=== PATIENT | male | born 1990 | race Caucasian/White ===

== ENCOUNTER 2016-10-14 16:14 | Emergency (ER) | payer OTHER ==
[2016-10-14 16:24] VITALS: RESP 16; TEMP 98.1
[2016-10-14] MEDS ORDERED: TDAP ADULT 0.5 ML INJ (BOOSTRIX) IM ONE (16:25)
--- NOTE | 2016-10-14 16:37 | EDPHY ---
H & P Stated Complaint: Laceration and crush injury to L 2nd and 3rd finger. Time Seen by Provider: 10/14/16 16:16 HPI/ROS: Chief Complaint: Finger injury HPI: 26-year-old male got his finger crushed by a heavy piece of steel that he was working on at work. His fingers were underneath it when it fell landed on them. He sustained lacerations over his index and middle finger of his left hand. He also has a subungual hematoma of his middle finger. Does not recall his last tetanus. No prior injuries. This happened just prior to arrival. He was wearing gloves when this occurred. ROS: 10 point Review of Systems is negative except as noted in the HPI. PMH: None Medications: None Allergies: Amoxicillin Social History: [No] smoking, [no] alcohol, [ no recreational drug use] Family History: [non-contributory] Physical Exam: General: Awake, alert, no acute distress Left hand: He has got lacerations on the palmar aspect of his left hand. There is a laceration over the middle phalanx of his pointer finger. There is a laceration over the distal phalanx of his wound finger. He has full flexion extension strength. There is also subungual hematoma of his 3rd finger. Sensations intact distally. Skin: No rash - Personal History Current Tetanus/Diphtheria Vaccine: Unsure Current Tetanus Diphtheria and Acellular Pertussis (TDAP): Unsure - Medical/Surgical History Hx Asthma: Yes Hx Chronic Respiratory Disease: No Hx Diabetes: No Hx Cardiac Disease: No Hx Renal Disease: No Hx Cirrhosis: No Hx Alcoholism: No Hx HIV/AIDS: No Hx Splenectomy or Spleen Trauma: No Other PMH: Tonsillectomy, asthma - Social History Smoking Status: Never smoked Constitutional: Initial Vital Signs Temperature (C) 36.7 C 10/14/16 16:16 Heart Rate 65 10/14/16 16:16 Respiratory Rate 16 10/14/16 16:16 Blood Pressure 150/75 H 10/14/16 16:16 O2 Sat (%) 93 10/14/16 16:16 O2 Delivery Mode Room Air Allergies/Adverse Reactions: amoxicillin Allergy (Unknown, Verified 10/14/16 16:24) Hives Home Medications: Medication Instructions Recorded NK [No Known Home Meds] 10/14/16 Medical Decision Making - Diagnostics Imaging Results: Imaging Impressions Finger X-Ray 10/14/16 16:26 Impression: No fracture. Procedures: Procedure: Digital nerve block, indication is digit anesthesia for procedure. Patient was prepped with chlorhexidine Skin prep. 0.5% bupivacaine was infiltrated in the medial in lateral aspects for with a dorsal approach at the base of the proximal phalanx with blockage of both dorsal and volar nerves. Total of 1 mL was infiltrated. There were no complications. Procedure was performed by myself. Procedure: Laceration 1 repair. Verbal consent was obtained from the patient. The 1.5 cm laceration on the left index finger was anesthetized in the usual fashion. The wound was irrigated, draped and explored to its base with a gloved finger. There were no deep structures involved. No tendon injury was identified. The wound was repaired with 4, 5-0 Ethilon simple interrupted sutures. The wound repair was uncomplicated. The procedure was performed by myself. Procedure: Laceration 2 repair. Verbal consent was obtained from the patient. The 2 cm laceration on the left middle finger was anesthetized in the usual fashion. The wound was irrigated, draped and explored to its base with a gloved finger. There were no deep structures involved. No tendon injury was identified. The wound was repaired with 5, 5-0 Ethilon simple interrupted sutures. The wound repair was uncomplicated. The procedure was performed by myself. Procedure: Nail trephination. Indication: Subungual hematoma. Anesthesia: None required Verbal consent was obtained from the patient to drain a subungual hematoma. The patient was prepped in the usual fashion. The subungual hematoma was drained with electrocautery. The subungual hematoma was drained successfully and there were no complications. The procedure was performed by myself. - Data Points Medications Given: Discontinued Medications Diphtheria/Tetanus/Acell Pertussis (Boostrix) 0.5 ml IM .ONCE ONE Stop: 10/14/16 16:26 Last Admin: 10/14/16 16:40 Dose: 0.5 ml Departure - Departure Disposition: Home, Routine, Self-Care Clinical Impression: Laceration, Crush injury, Subungual hematoma Condition: Good Instructions: Diphtheria/Acellular Pertussis/Tetanus Booster Vaccine (By injection), Care For Your Stitches (ED), Subungual Hematoma (ED), Laceration (ED ), Crush Injury (ED) Additional Instructions: Stitches need to be removed in 14 days. Follow up with workman's Comp for suture removal. Watch for signs of infection including increasing redness, streaking up your hand, pus from the wounds, increasing pain, warm to touch, or any other concerns. He may take ibuprofen alternating with acetaminophen every 4 hours as needed for pain. Referrals: Work Comp Referral [facility] [Outside] - As per Instructions Stand Alone Forms: Work Limited Duty
[2016-10-14 17:30] VITALS: BP 136/81; PULSE 67; O2SAT 96
== END 2016-10-14 17:27 | disposition home or self-care (01) ==
LOC: CED 16:14
PROC: 0HQGXZZ Repair Left Hand Skin, External Approach (ICD-10-PCS; principal; 2016-10-14)
PROC: 0H9QXZZ Drainage of Finger Nail, External Approach (ICD-10-PCS; principal; 2016-10-14)
DX: S61.211A Laceration without foreign body of left index finger without damage to nail, initial encounter (principal); S61.213A Laceration without foreign body of left middle finger without damage to nail, initial encounter; S60.032A Contusion of left middle finger without damage to nail, initial encounter; J45.909 Unspecified asthma, uncomplicated; S67.193A Crushing injury of left middle finger, initial encounter; S67.191A Crushing injury of left index finger, initial encounter; Z23 Encounter for immunization; W23.1XXA Caught, crushed, jammed, or pinched between stationary objects, initial encounter; Y92.69 Other specified industrial and construction area as the place of occurrence of the external cause; Y99.0 Civilian activity done for income or pay; Y93.89 Activity, other specified
CPT/HCPCS: 73140-PO